=== PATIENT | male | born 1995 | race Caucasian/White ===

== ENCOUNTER 2023-09-01 11:50 | Inpatient (IN) | payer OTHER ==
[2023-09-01 12:20] LABS: Basophils % (A) 0 %; Eosinophils # (A) 0.3 k/uL (0-0.7); Eosinophils % (A) 2 %; HCT 48.8 % (39.0-53.0); Lymphocytes % (A) 7 %; MCH 36.5 pg (25.0-35.0); MCHC 34.9 g/dL (31.0-37.0); MCV 104.8 fL (80.0-100.0); Macrocytosis Slight; Mean Platelet Volume 9.7; Monocytes # (A) 0.5 k/uL (0-1.0); Monocytes % (A) 4 %; Neutrophils # (A) 11.7 k/uL (1.3-7.7); Neutrophils % (A) 86 %; Platelet Count 263 k/uL (150-450); RBC 4.66 m/uL (4.30-5.90); RDW 12.9 % (11.5-15.5); WBC 13.7 k/uL (3.8-10.6)
[2023-09-01 12:30] LABS: ALT 69 U/L (4-49); AST 98 U/L (17-59); African American GFR (CKD) >90 (>60 ml/min/1.73 sqM); Albumin 4.7 g/dL (3.5-5.0); Alkaline Phosphatase 82 U/L (38-126); Anion Gap 15 mmol/L; Blood Urea Nitrogen 7 mg/dL (9-20); Calcium 9.8 mg/dL (8.4-10.2); Carbon Dioxide 19 mmol/L (22-30); Chloride 103 mmol/L (98-107); Glucose 96 mg/dL (74-99); Non-African American GFR(CKD) >90 (>60 ml/min/1.73 sqM); Potassium 3.8 mmol/L (3.5-5.1); Sodium 137 mmol/L (137-145); Total Bilirubin 2.5 mg/dL (0.2-1.3); Total Protein 7.2 g/dL (6.3-8.2)
[2023-09-01] MEDS: LORazepam 2 MG/ML INJ IV STA (13:31)
[2023-09-01] MEDS: SODIUM CHLORIDE 0.9% 1,000 ML IV STA (13:32)
[2023-09-01 13:46] LABS: Magnesium 1.2 mg/dL (1.6-2.3)
--- NOTE | 2023-09-01 14:32 | US ---
EXAMINATION TYPE: US abdomen limited DATE OF EXAM: 09/01/2023 COMPARISON: NONE CLINICAL INDICATION: Male, 28 years old with history of RUQ pain; RUQ pain. TECHNIQUE: Multiple sonographic images of the right upper quadrant are obtained. FINDINGS: EXAM MEASUREMENTS: Liver Length: 17.3 cm Gallbladder Wall: 0.18 cm CBD: 0.53 cm Right Kidney: 11.0 x 5.2 x 4.2 cm TECHNICAL SERVICES ANALYST NOTES: Limited due to gas. Pancreas: Limited, tail was not well seen. Liver: Measures upper limits. Appears very coarse/heterogeneous in echotexture. Gallbladder: Appears wnl Evidence for sonographic Calvillo's sign: No CBD: Appears wnl Right Kidney: No hydronephrosis or masses seen IMPRESSION: 1. No evidence for acute process. 2. Mild heterogenous appearance of the liver correlate with serum markers.
[2023-09-01] MEDS: MAGNESIUM SULFATE-D5W PMX 1 GM in DEXTROSE/WATER 1 100ML.BAG IVPB SCH (14:43)
--- NOTE | 2023-09-01 15:13 | ED ---
Anxiety HPI - General Chief Complaint: Anxiety Stated Complaint: anxiety,NV Time Seen by Provider: 09/01/23 12:00 Source: patient, RN notes reviewed Mode of arrival: EMS - History of Present Illness Initial Comments: 28-year-old male with no significant medical history presenting with nausea and vomiting for 1 day. States he began to feel ill last night and vomited once. States today he feels very anxious and states his whole body feels numb and tingly. He reports drinking half a pint of alcohol daily. Last drink was 1 day ago. He states he has not been to a doctor in several years. Denies chest pain, shortness of breath, abdominal pain, fever. - Related Data Home Medications: Home Medications Medication Instructions Recorded Confirmed No Known Home Medications 09/01/23 09/01/23 Allergies/Adverse Reactions: Allergies Allergy/AdvReac Type Severity Reaction Status Date / Time No Known Allergies Allergy Verified 09/01/23 13:32 Review of Systems ROS Statement: Those systems with pertinent positive or pertinent negative responses have been documented in the HPI. ROS Other: All systems not noted in ROS Statement are negative. Past Medical History Additional Past Medical History / Comment(s): Migraine, Back Past Surgical History: No Surgical Hx Reported Past Psychological History: Anxiety Smoking Status: Current every day smoker Past Alcohol Use History: Daily Past Drug Use History: Marijuana General Exam Limitations: no limitations General appearance: alert, in no apparent distress Head exam: Present: atraumatic, normocephalic, normal inspection Eye exam: Present: normal appearance, PERRL, EOMI, scleral icterus (Mild scleral icterus present bilaterally). Absent: conjunctival injection, periorbital swelling ENT exam: Present: normal exam, mucous membranes moist Respiratory exam: Present: normal lung sounds bilaterally. Absent: respiratory distress, wheezes, rales, rhonchi, stridor Cardiovascular Exam: Present: regular rate, normal rhythm, normal heart sounds. Absent: systolic murmur, diastolic murmur, rubs, gallop, clicks GI/Abdominal exam: Present: soft, normal bowel sounds. Absent: distended, tenderness, guarding, rebound, rigid Neurological exam: Present: alert, oriented X3, CN II-XII intact Psychiatric exam: Present: normal affect, normal mood, anxious Skin exam: Present: warm, dry, intact, normal color. Absent: rash Course Vital Signs 09/01/23 11:52 Temperature 98.1 F Pulse Rate 114 H Respiratory 20 Rate Blood Pressure 123/79 O2 Sat by Pulse 98 Oximetry Medical Decision Making - Medical Decision Making Was pt. sent in by a medical professional or institution ([facility], [facility], urgent care, hospital, or halfway...) When possible be specific @ -No Did you speak to anyone other than the patient for history (EMS, parent, family, police, friend...)? What history was obtained from this source @ -No Did you review nursing and triage notes (agree or disagree)? Why? @ -I reviewed and agree with nursing and triage notes Were old charts reviewed (outside hosp., previous admission, EMS record, old EKG, old radiological studies, urgent care reports/EKG's, halfway records)? Report findings @ -No old charts were reviewed Differential Diagnosis (chest pain, altered mental status, abdominal pain women, abdominal pain men, vaginal bleeding, weakness, fever, dyspnea, syncope, headache, dizziness, GI bleed, back pain, seizure, CVA, palpatations, mental health, musculoskeletal)? @ -Alcohol withdrawal, electrolyte imbalance, cardiac arrhythmia, anxiety, acute hepatitis EKG interpreted by me (3pts min.). @ -Sinus tachycardia with nonspecific T wave abnormality X-rays interpreted by me (1pt min.). @ -None done CT interpreted by me (1pt min.). @ -None done U/S interpreted by me (1pt. min.). @ -Ultrasound of the right upper quadrant reveals no acute process What testing was considered but not performed or refused? (CT, X-rays, U/S, labs)? Why? @ -None What meds were considered but not given or refused? Why? @ -None Did you discuss the management of the patient with other professionals (professionals i.e. [facility], [facility], lab, RT, psych nurse, 7th grade social studies teacher, tailor's aide, teacher, legal compliance officer, director case management)? Give summary @ -No Was smoking cessation discussed for >3mins.? @ -No Was critical care preformed (if so, how long)? @ -No Were there social determinants of health that impacted care today? How? (Homelessness, low income, unemployed, alcoholism, drug addiction, tr ansportation, low edu. Level, literacy, decrease access to med. care, nursing home, rehab)? @ -Alcoholism Was there de-escalation of care discussed even if they declined (Discuss DNR or withdrawal of care, Hospice)? DNR status @ -No What co-morbidities impacted this encounter? (DM, HTN, Smoking, COPD, CAD, Cancer, CVA, ARF, Chemo, Hep., AIDS, mental health diagnosis, sleep apnea, morbid obesity)? @ -None Was patient admitted / discharged? Hospital course, mention meds given and route, prescriptions, significant lab abnormalities, going to OR and other pertinent info. @ -Patient was admitted. Patient was seen and evaluated for nausea and vomiting. Reports drinking 1 pint of alcohol daily, last drink was yesterday. Patient appears anxious upon examination, however has no abdominal tenderness upon palpation. Scleral icterus is present. Liver enzymes were elevated, however ultrasound of liver was negative for acute hepatitis. Patient was started on magnesium for low value of 1.2. Patient was started on fluids and Ativan for alcohol withdrawal. Patient placed on CIWA protocol. Patient was admitted to medicine team. Discussed case with admitting physician Dr. Olivia. Discussed case with Dr. Olson. Undiagnosed new problem with uncertain prognosis? @ -No Drug Therapy requiring intensive monitoring for toxicity (Heparin, Nitro, Insulin, Cardizem)? @ -No Were any procedures done? @ -No Diagnosis/symptom? @ -Alcohol withdrawal Acute, or Chronic, or Acute on Chronic? @ -Acute Uncomplicated (without systemic symptoms) or Complicated (systemic symptoms)? @ -Complicated Side effects of treatment? @ -No Exacerbation, Progression, or Severe Exacerbation? @ -No Poses a threat to life or bodily function? How? (Chest pain, USA, [place], pneumonia, PE, COPD, DKA, ARF, appy, cholecystitis, CVA, Diverticulitis, Homicidal, Suicidal, threat to staff... and all critical care pts) @ -Yes, risk of seizures with alcohol withdrawal, risk for cardiac arrhythmias with low magnesium - Lab Data Result diagrams: 09/01/23 11:55 09/01/23 11:55 Lab Results 09/01/23 09/01/23 Range/Units 11:55 11:55 WBC 13.7 H (3.8-10.6) k/uL RBC 4.66 (4.30-5.90) m/uL Hgb 17.0 (13.0-17.5) gm/dL Hct 48.8 (39.0-53.0) % MCV 104.8 H (80.0-100.0) fL MCH 36.5 H (25.0-35.0) pg MCHC 34.9 (31.0-37.0) g/dL RDW 12.9 (11.5-15.5) % Plt Count 263 (150-450) k/uL MPV 9.7 Neutrophils % 86 % Lymphocytes % 7 % Monocytes % 4 % Eosinophils % 2 % Basophils % 0 % Neutrophils # 11.7 H (1.3-7.7) k/uL Lymphocytes # 1.0 (1.0-4.8) k/uL Monocytes # 0.5 (0-1.0) k/uL Eosinophils # 0.3 (0-0.7) k/uL Basophils # 0.0 (0-0.2) k/uL Macrocytosis Slight Sodium 137 (137-145) mmol/L Potassium 3.8 (3.5-5.1) mmol/L Chloride 103 (98-107) mmol/L Carbon Dioxide 19 L (22-30) mmol/L Anion Gap 15 mmol/L BUN 7 L (9-20) mg/dL Creatinine 0.80 (0.66-1.25) mg/dL Est GFR (CKD-EPI)AfAm >90 (>60 ml/min/1.73 sqM) Est GFR (CKD-EPI)NonAf >90 (>60 ml/min/1.73 sqM) Glucose 96 (74-99) mg/dL Calcium 9.8 (8.4-10.2) mg/dL Total Bilirubin 2.5 H (0.2-1.3) mg/dL AST 98 H (17-59) U/L ALT 69 H (4-49) U/L Alkaline Phosphatase 82 (38-126) U/L Total Protein 7.2 (6.3-8.2) g/dL Albumin 4.7 (3.5-5.0) g/dL - EKG Data -: EKG Interpreted by [facility] EKG Comments: Sinus tachycardia with nonspecific T wave abnormality. Ventricular rate 100 bpm, SD interval 133, QRS duration 94, QT/QTc 336/393 When compared to previous EKG there are: previous EKG unavailable Disposition Clinical Impression: Alcohol withdrawal Disposition: ADMITTED IP TO THIS HOSP Condition: Stable Referrals: None,Stated [Primary Care Provider] - 1-2 days Time of Disposition: 15:37
[2023-09-01] MEDS ORDERED: LORazepam 0.5 MG TAB PO PRN (15:16)
[2023-09-01] MEDS ORDERED: LORazepam 1 MG TAB PO PRN (15:16)
[2023-09-01] MEDS ORDERED: LORazepam 2 MG/ML INJ IV PRN ×2 (15:16)
[2023-09-01] MEDS ORDERED: ONDANSETRON 4 MG/2 ML VIAL IVP PRN (15:17)
[2023-09-01] MEDS ORDERED: NALOXONE 0.4 MG/ML 1 ML VIAL IV PRN (15:17)
[2023-09-01] MEDS: MAGNESIUM SULFATE-D5W PMX 1 GM in DEXTROSE/WATER 1 100ML.BAG IVPB ONE (18:14)
[2023-09-01] MEDS: SODIUM CHLORIDE 0.9% 1,000 ML IV SCH (18:20)
[2023-09-01] MEDS: NICOTINE 14MG/24HR PATCH TRANSDERM SCH (21:24)
--- NOTE | 2023-09-02 05:51 | HP ---
HISTORY AND PHYSICAL SUBJECTIVE: This 28-year-old white male, came with nausea and vomiting for 1 day, very anxious, his whole body was numb and tingly, has half a pint of alcohol daily, last drink was 1 day ago. He has not seen a doctor in many years. Denies chest pain, shortness of breath, abdominal pain, or fever. MEDICATIONS: Negative. ALLERGIES: Negative. REVIEW OF SYSTEMS: A 14-point review of systems otherwise negative. PAST MEDICAL HISTORY: Migraines, back pain. SOCIAL HISTORY: Current everyday smoker, marijuana also. PHYSICAL EXAMINATION: VITAL SIGNS: Pulse is 114, temperature 98.1, respiratory rate 18 to 20, blood pressure 123/79, and O2 98. HEENT: Normocephalic, atraumatic. Pupils equal, round, reactive. NECK: Supple. RESPIRATORY: Clear. CARDIOVASCULAR: S1, S2. GI: Soft. NEUROLOGIC: Alert and oriented x3. PSYCH: Fair mood and affect. SKIN: Warm and dry. ASSESSMENT: Alcoholism, leukocytosis, microcytic anemia, hyperbilirubinemia secondary to liver failure. Possibly get a GI consult due to elevated bilirubin, sinus tachycardia secondary to dehydration. Alcohol withdrawal. Prognosis guarded. Await GI consult for elevated bilirubin. Please see further orders. Abdominal ultrasound. MMODL / IJN: [id number] /
[2023-09-02] MEDS: THIAMINE 100 MG TAB PO SCH (09:37)
[2023-09-02 09:50] VITALS: TEMP 98
[2023-09-02 10:04] LABS: Basophils # (A) 0.1 k/uL (0-0.2); Basophils % (A) 1 %; Eosinophils # (A) 0.1 k/uL (0-0.7); Eosinophils % (A) 1 %; HCT 46.8 % (39.0-53.0); HGB 15.7 gm/dL (13.0-17.5); Lymphocytes # (A) 1.6 k/uL (1.0-4.8); Lymphocytes % (A) 19 %; MCH 36.1 pg (25.0-35.0); MCHC 33.6 g/dL (31.0-37.0); MCV 107.7 fL (80.0-100.0); Macrocytosis Moderate; Mean Platelet Volume 10.2; Monocytes # (A) 0.7 k/uL (0-1.0); Monocytes % (A) 7 %; Neutrophils # (A) 6.2 k/uL (1.3-7.7); Neutrophils % (A) 70 %; Platelet Count 214 k/uL (150-450); RBC 4.34 m/uL (4.30-5.90); RDW 12.9 % (11.5-15.5); WBC 8.9 k/uL (3.8-10.6)
[2023-09-02 10:14] LABS: ALT 58 U/L (4-49); AST 84 U/L (17-59); African American GFR (CKD) >90 (>60 ml/min/1.73 sqM); Albumin 3.8 g/dL (3.5-5.0); Albumin/Globulin Ratio 1.7; Alkaline Phosphatase 67 U/L (38-126); Anion Gap 5 mmol/L; Blood Urea Nitrogen 10 mg/dL (9-20); Calcium 9.4 mg/dL (8.4-10.2); Carbon Dioxide 26 mmol/L (22-30); Chloride 105 mmol/L (98-107); Globulin 2.3 g/dL; Glucose 106 mg/dL (74-99); Magnesium 1.8 mg/dL (1.6-2.3); Non-African American GFR(CKD) >90 (>60 ml/min/1.73 sqM); Potassium 3.7 mmol/L (3.5-5.1); Sodium 136 mmol/L (137-145); Total Bilirubin 1.2 mg/dL (0.2-1.3); Total Protein 6.1 g/dL (6.3-8.2)
--- NOTE | 2023-09-02 12:14 | P.CONS ---
History of Present Illness - Reason for Consult Consult date: 09/02/23 High bilirubin Requesting physician: Chito Olivia - Chief Complaint Alcohol withdrawal - History of Present Illness This is a pleasant 28-year-old male who presented to the emergency department for not feeling well. He states he has some nausea and vomiting and overall is just feeling shaky and not well. He has a history of heavy alcohol abuse. States he has been a heavy drinker for about 7 years and was drinking about a half a gallon to a gallon of liquor daily. Somewhat recently he has decreased to about 1/5 a day and now about a pint a day. Last drink was 2 days ago. He states he is trying to quit and cut back to drinking. He was feeling very shaky and had an episode of nausea and vomiting. His mother was concerned and told to come to the hospital for alcohol withdrawal symptoms. He was noted to have elevated LFTs on admission. Low magnesium. He denies any abdominal pain no nausea or vomiting. He did have an ultrasound the abdomen showing mild heterogeneous liver. Gastroenterology was consulted for elevated bilirubin. Admitting labs WBC 13.7 hemoglobin 17 platelet count 263,000 sodium 137 potassium 3.8 BUN 7 creatinine 0.8 magnesium 1.2 total bilirubin 2.5 AST 98 ALT 69 alkaline phosphatase 82 lipase 64 serum alcohol less than 10 Review of Systems REVIEW OF SYSTEMS: CARDIOPULMONARY: No chest pain or shortness of breath. Gastrointestinal: No abdominal pain. Nausea and vomiting yesterday prior to coming in. No nausea or vomiting currently. No hematemesis, coffee-ground emesis. No rectal bleeding, or melena. GENITOURINARY: No dysuria or hematuria. MUSCULOSKELETAL: Reports normal range of motion. SKIN: No rashes. No jaundice. ENDOCRINE: No chills, fevers. No excessive weight gain or loss. No polydipsia or polyuria. PSYCHIATRIC: Anxiety, alcohol/substance abuse NEUROLOGY: No change in mental status. Denies dizziness, headache. Patient states he was very shaky, tremors. ENT: Vision unremarkable. CONSTITUTIONAL: No recent weight loss. No fever, chills, night sweats. Past Medical History Additional Past Medical History / Comment(s): Migraine, Back History of Any Multi-Drug Resistant Organisms: None Reported Past Surgical History: No Surgical Hx Reported Additional Past Surgical History / Comment(s): Tubes in ear as child Smoking Status: Current every day smoker - Past Family History Mother Additional Family Medical History / Comment(s): Lupus, heart problems, Medications and Allergies Home Medications Medication Instructions Recorded Confirmed Type No Known Home Medications 09/01/23 09/01/23 History Allergies Allergy/AdvReac Type Severity Reaction Status Date / Time No Known Allergies Allergy Verified 09/01/23 13:32 Physical Exam Vitals: Vital Signs Temp Pulse Resp BP Pulse Ox 09/02/23 06:46 98.1 F 99 18 146/92 98 09/02/23 04:57 98 F 98 16 129/85 98 09/02/23 03:00 98.2 F 75 16 130/82 98 09/01/23 23:51 87 18 133/86 99 09/01/23 21:11 98.3 F 100 16 149/84 98 09/01/23 18:20 82 14 138/86 100 09/01/23 15:07 110 H 18 144/86 100 09/01/23 11:52 98.1 F 114 H 20 123/79 98 Intake and Output 09/01/23 09/02/23 09/02/23 22:59 06:59 14:59 Other: Weight 77.111 kg 77.111 kg General appearance: The patient is alert, oriented, appears in no acute distress. HET: Head is normocephalic and atraumatic. Conjunctiva pink. Sclera anicteric. Neck: Supple without lymphadenopathy. Trachea midline. Heart: Regular. Lungs: Equal expansion, normal respiratory effort. Abdomen: Soft, nontender, nondistended with bowel sounds. No guarding or ri gidity. Skin: No rashes. No jaundice. Extremities: Normal skin color and turgor. No pedal edema. Neurological: No focal deficits. Alert and oriented x3. Results CBC & Chem 7: 09/02/23 09:08 09/02/23 09:08 Labs: Abnormal Lab Results - Last 24 Hours (Table) 09/01/23 09/01/23 09/01/23 Range/Units 11:55 11:55 11:55 WBC 13.7 H (3.8-10.6) k/uL MCV 104.8 H (80.0-100.0) fL MCH 36.5 H (25.0-35.0) pg Neutrophils # 11.7 H (1.3-7.7) k/uL Carbon Dioxide 19 L (22-30) mmol/L BUN 7 L (9-20) mg/dL Magnesium 1.2 L (1.6-2.3) mg/dL Total Bilirubin 2.5 H (0.2-1.3) mg/dL AST 98 H (17-59) U/L ALT 69 H (4-49) U/L Comments: Abdominal ultrasound reports no evidence for acute process. Mild heterogeneous appearance of liver correlate with serum markers Assessment and Plan (1) Acute alcoholic hepatitis Narrative/Plan: 28-year-old male with a history of heavy drinking for the past 7 years presented to the emergency department as directed by his mom for concerns of alcohol withd vaughn symptoms. Patient states he has been heavy drinker drinking a half a gallon to a gallon a day for many years and cutting back to the fifth a day now a pint of liquor a day. Drink last about 2 days ago. Patient states he was not feeling well from quitting drinking he had nausea and vomiting and tremors and shakes. On admission was noted to have elevated total bilirubin and LFTs. Denies any previous known history of liver disease. Ultrasound shows heterogeneous liver which can be seen with underlying hepatic steatosis or liver disease. Labs are consistent with acute alcohol hepatitis. Discussed with patient importance of alcohol abstinence and outpatient follow-up with gastroenterology. No further workup indicated at this time. Current Visit: Yes Status: Acute Code(s): K70.10 - ALCOHOLIC HEPATITIS WITHOUT ASCITES SNOMED Code(s): 5970081 (2) Alcohol withdrawal Current Visit: Yes Status: Acute Code(s): F10.939 - ALCOHOL USE, UNSPECIFIED WITH WITHDRAWAL, UNSPECIFIED SNOMED Code(s): 153556884 (3) Hypomagnesemia Narrative/Plan: Replace per protocol Current Visit: Yes Status: Acute Code(s): E83.42 - HYPOMAGNESEMIA SNOMED Code(s): 602521713 (4) Alcohol abuse Current Visit: Yes Status: Acute Code(s): F10.10 - ALCOHOL ABUSE, UNCOMPLICATED SNOMED Code(s): 71348551 Plan: 1. Continue symptomatic and supportive care 2. Continue monitoring for withdrawal symptoms, CIWA protocol 3. Acute hepatitis panel ordered 4. Repeat CMP tomorrow 5. Recommend alcohol abstinence 6. Discussed with patient importance of alcohol abstinence and outpatient follow-up with gastroenterology. Patient verbalized understanding. 7. No further workup indicated by gastroenterology 8. Rest of medical management per primary medical team Thank you for this consultation, we will continue to follow. Dr. Benigno Mitchell I agree with the dictator's note, documented as a scribe by Johanna Rice.
[2023-09-02 13:26] VITALS: BMI 23.0
[2023-09-02 14:08] VITALS: BP 136/89; PULSE 97; RESP 16
[2023-09-02 16:08] LABS: Hepatitis A Antibody IgM Nonreactive (Nonreactive); Hepatitis B Core IgM Nonreactive (Nonreactive); Hepatitis B Surface Antigen Nonreactive (Nonreactive); Hepatitis C IgG Antibody Nonreactive (Nonreactive)
--- NOTE | 2023-09-03 00:27 | PN ---
PROGRESS NOTE SUBJECTIVE: He has been complaining of shortness of breath. He says he has been exposed to smoke his whole life, he cannot breathe. I sent him home with some inhalers. Alcohol withdrawal, he has improved from. He does not need anything for alcohol withdrawal anymore. OBJECTIVE: CARDIOVASCULAR: S1, S2. LUNGS: Mild wheeze. HEMATOLOGY: Negative for Homans. GI: Soft. ASSESSMENT: Alcohol withdrawal, suspect asthma versus COPD, remains on steroid inhaler, Breztri 2 puffs b.i.d. for inhaler, gave him a month samples. Continue current treatments. PROGNOSIS: Guarded. Follow up as an outpatient. MMODL / IJN: [id number] /
== END 2023-09-02 20:05 | disposition home or self-care (01) | DRG 897 ==
LOC: EC 11:50 → 4SSUR 15:07
PROVIDERS: ADMIT Family Medicine; ATTEND Family Medicine
DX: F10.239 Alcohol dependence with withdrawal, unspecified (principal); F41.9 Anxiety disorder, unspecified; F17.200 Nicotine dependence, unspecified, uncomplicated; K70.10 Alcoholic hepatitis without ascites; E83.42 Hypomagnesemia; D50.9 Iron deficiency anemia, unspecified; K72.90 Hepatic failure, unspecified without coma; E86.0 Dehydration
CPT/HCPCS: 36415; 76705; 80053; 80074; 80320; 83690; 83735; 84484; 85025; 96361; 96365; 96366; 99285